=== PATIENT | male | born 1955 | race African-American/Black ===

== ENCOUNTER 2018-06-27 09:44 | Emergency (ER) | payer MEDICAID ==
[~2018-06-27] VITALS: Ht 190.5 cm; Wt 127.0 kg
[2018-06-27 11:22] VITALS: BP 147/93
== END 2018-06-27 11:25 | disposition home or self-care (01) ==
LOC: ER 09:44
DX: I10 Essential (primary) hypertension (principal); E11.9 Type 2 diabetes mellitus without complications; F12.90 Cannabis use, unspecified, uncomplicated; Z86.73 Personal history of transient ischemic attack (TIA), and cerebral infarction without residual deficits; Z76.0 Encounter for issue of repeat prescription

== ENCOUNTER 2018-07-30 08:42 | Emergency (ER) | payer MEDICAID ==
[~2018-07-30] VITALS: Ht 190.5 cm; Wt 128.8 kg
[2018-07-30 09:10] VITALS: BP 153/80
[2018-07-30 09:37] LABS: Basophils # (auto) 0 uL; Basophils % (auto) 0.5 % (0.0-2.0); Eosinophils # (auto) 0 uL; Eosinophils % (auto) 0.5 % (0.0-7.0); Hematocrit 51.1 % (41.0-53.0); Lymphocytes # (auto) 1.1 uL; Lymphocytes % (auto) 33.9 % (10.0-50.0); Mean Corpuscular Hemoglobin 33.3 pg (28.0-32.0); Mean Corpuscular Hgb Conc. 33.2 g/dL (32.0-36.0); Mean Corpuscular Volume 100.1 fL (80.0-100.0); Monocytes # (auto) 0.4 uL; Monocytes % (auto) 11.6 % (0.0-12.0); Neutrophils # (auto) 1.8 uL; Neutrophils % (auto) 53.5 % (37.0-80.0); Nucleated Red Blood Cells % 0.1 %; Platelet Count (auto) 149 10^3/uL (140-450); Red Blood Cells 5.11 10^6/uL (4.5-5.90); Red Cell Distribution Width 13.5 % (11.8-14.3); White Blood Cell 3.4 10^3/uL (4.4-10.8)
[2018-07-30 09:50] LABS: Partial Thromboplastin Time 28.8 sec (23.78-33.04); Prothrombin Time 10.7 sec (9.27-12.13)
[2018-07-30 09:54] LABS: Alanine Aminotransferase 37 U/L (16-61); Albumin 3.8 g/dL (3.4-5.0); Anion Gap 8 (5-15); Aspartate Aminotransferase 21 U/L (15-37); BUN/Creatinine Ratio 17.9; Blood Urea Nitrogen 20 mg/dL (7-18); Calcium 8.5 mg/dL (8.5-10.1); Carbon Dioxide 27 mmol/L (21-32); Chloride 104 mmol/L (98-107); GFR African American > 60 mL/min; GFR Non-African American > 60 mL/min; Glucose 105 mg/dL (74-106); Potassium 4.1 mmol/L (3.5-5.1); Sodium 139 mmol/L (136-145)
[2018-07-30 09:59] LABS: Alkaline Phosphatase 83 U/L (45-117); Bilirubin, Total 0.6 mg/dL (0.2-1.0); Total Protein 7.2 g/dL (6.4-8.2)
== END 2018-07-30 10:59 | disposition home or self-care (01) ==
LOC: ER 08:42
DX: M16.12 Unilateral primary osteoarthritis, left hip (principal); R53.1 Weakness; E11.9 Type 2 diabetes mellitus without complications; I10 Essential (primary) hypertension; R94.31 Abnormal electrocardiogram [ECG] [EKG]; G93.89 Other specified disorders of brain; Z86.73 Personal history of transient ischemic attack (TIA), and cerebral infarction without residual deficits
CPT/HCPCS: 36415; 70450; 71045; 73030; 73502; 80053; 82962; 83735; 83880; 84484; 85025; 85610; 85730; 93005

== ENCOUNTER 2019-05-29 07:08 | Inpatient (IN) | payer MEDICAID ==
[~2019-05-29] VITALS: Ht 190.5 cm; Wt 131.2 kg
[2019-05-29 09:38] LABS: Basophils # (auto) 0 uL; Basophils % (auto) 0.7 % (0.0-2.0); Eosinophils # (auto) 0 uL; Eosinophils % (auto) 0.6 % (0.0-7.0); Hemoglobin 15.9 g/dL (13.5-17.5); Lymphocytes % (auto) 37.3 % (10.0-50.0); Mean Corpuscular Hemoglobin 33.5 pg (28.0-32.0); Mean Corpuscular Hgb Conc. 33.8 g/dL (32.0-36.0); Mean Corpuscular Volume 99.2 fL (80.0-100.0); Monocytes # (auto) 0.3 uL; Monocytes % (auto) 10.1 % (0.0-12.0); Neutrophils # (auto) 1.4 uL; Neutrophils % (auto) 51.3 % (37.0-80.0); Nucleated Red Blood Cells % 0.2 %; Platelet Count (auto) 139 10^3/uL (140-450); Red Blood Cells 4.74 10^6/uL (4.5-5.90); Red Cell Distribution Width 13.7 % (11.8-14.3); White Blood Cell 2.6 10^3/uL (4.4-10.8)
[2019-05-29 09:50] LABS: Albumin 3.6 g/dL (3.4-5.0); Anion Gap 2 (5-15); Blood Urea Nitrogen 9 mg/dL (7-18); Calcium 8.7 mg/dL (8.5-10.1); Carbon Dioxide 30 mmol/L (21-32); Chloride 108 mmol/L (98-107); Glucose 109 mg/dL (74-106); Sodium 140 mmol/L (136-145)
[2019-05-29 09:55] LABS: Alanine Aminotransferase 35 U/L (16-61); Alkaline Phosphatase 82 U/L (45-117); Aspartate Aminotransferase 17 U/L (15-37); BUN/Creatinine Ratio 8.9; Bilirubin, Total 0.8 mg/dL (0.2-1.0); GFR African American 96 mL/min; GFR Non-African American 79 mL/min; Total Protein 6.6 g/dL (6.4-8.2)
[2019-05-29 10:30] LABS: Urine Bacteria NONE SEEN /hpf (None Seen); Urine Blood Negative /uL (Negative); Urine Mucus FEW (None Seen); Urine WBC 1 /hpf (0 - 3)
[2019-05-29] MEDS ORDERED: PIPERACILLIN-TAZOB 3.375GM 100 ML IV ONE (11:45)
[2019-05-29] MEDS ORDERED: SODIUM CHLORIDE 0.9% 1,000 ML IV ONE ×2 (12:58)
[2019-05-29] MEDS ORDERED: ONDANSETRON HCL 4 MG/2 ML VIAL IV PRN (13:15)
[2019-05-29] MEDS ORDERED: NITROGLYCERIN 0.4 MG SL TAB SL PRN (13:15)
[2019-05-29] MEDS ORDERED: MORPHINE SULF INJ 2 MG/ML SYRINGE 1ML IV PRN ×2 (13:15)
[2019-05-29] MEDS ORDERED: LEVOFLOXACIN 500MG 100 ML IV ONE (13:15)
[2019-05-29] MEDS ORDERED: ATROPINE SULF 1 MG/10ml SYR IV PRN (13:15)
[2019-05-29] MEDS: SODIUM CHLORIDE 0.9% 1,000 ML IV SCH ×2 (13:50→23:41)
[2019-05-29] MEDS ORDERED: ATROPINE SULF 0.5 MG/5ML SYR IV PRN (14:00)
[2019-05-29 14:08] LABS: INR 1.23 (0.9-1.15)
[2019-05-29] MEDS: metroNIDAZOLE 500MG/100ML 100 ML IV SCH ×2 (16:08→21:10)
[2019-05-29 18:23] LABS: Basophils # (auto) 0 uL; Basophils % (auto) 0.5 % (0.0-2.0); Eosinophils # (auto) 0 uL; Eosinophils % (auto) 1.2 % (0.0-7.0); Hematocrit 43.7 % (41.0-53.0); Hemoglobin 14.3 g/dL (13.5-17.5); Lymphocytes # (auto) 1.1 uL; Lymphocytes % (auto) 34.8 % (10.0-50.0); Mean Corpuscular Hemoglobin 33.1 pg (28.0-32.0); Mean Corpuscular Hgb Conc. 32.6 g/dL (32.0-36.0); Mean Corpuscular Volume 101.3 fL (80.0-100.0); Monocytes # (auto) 0.3 uL; Neutrophils # (auto) 1.6 uL; Neutrophils % (auto) 52.5 % (37.0-80.0); Nucleated Red Blood Cells % 0.4 %; Platelet Count (auto) 118 10^3/uL (140-450); Red Blood Cells 4.32 10^6/uL (4.5-5.90); Red Cell Distribution Width 13.7 % (11.8-14.3); White Blood Cell 3.1 10^3/uL (4.4-10.8)
--- NOTE | 2019-05-29 20:55 | NUR ---
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 Patient transferred to bed, connected to unit monitoring and weighed by bed scale. Patient oriented to Ольга licea RN, unit, room, bed, and unit policies regarding patient care and visiting hours. All questions and concerns addressed, patient verbalized understanding. NOTE: PATIENT IS AWAKE, ALERT AND ORIENTED X4. NO SOB, DISTRESS OR PAIN NOTED. ON ROOM AIR. PALPATED RADIAL PULSE 35, SINUS BRADYCARDIA WITH BIGEMINAL PVCS 70 ON MONITOR RH 20G INFUSING NS AT 100ML/H. NO OPEN WOUND. WILL CLOSELY MONITOR.
[2019-05-29 21:00] VITALS: BP 179/75
[2019-05-29] MEDS ORDERED: CLOP75TA28 PO (21:40)
[2019-05-29] MEDS ORDERED: HYDR-4296 PO (21:40)
[2019-05-29] MEDS ORDERED: BENA20TA14 PO (21:40)
[2019-05-29] MEDS ORDERED: ATO40T PO (21:40)
[2019-05-29] MEDS ORDERED: LEVOFLOXACIN 500MG 100 ML IV SCH (22:00)
[2019-05-29] MEDS: hydrALAZINE HCL 20 MG/ML VL IV PRN (22:23)
[2019-05-30] VITALS: BP 137/67
[2019-05-30 04:00] VITALS: BP 148/66
--- NOTE | 2019-05-30 04:30 | NUR ---
MORNING HYGIENE CARE PATIENT INDEPENDENTLY BATHED HIMSELF, WASHED HIS FACE AND BRUSHED HIS TEETH. NEW GOWN PLACED. PARTIAL LINEN CHANGED. PATIENT TOLERATED IT WELL.
[2019-05-30 04:53] LABS: Basophils # (auto) 0 uL; Basophils % (auto) 0.6 % (0.0-2.0); Eosinophils # (auto) 0 uL; Eosinophils % (auto) 1.2 % (0.0-7.0); Hematocrit 45.5 % (41.0-53.0); Hemoglobin 15.2 g/dL (13.5-17.5); Lymphocytes # (auto) 0.9 uL; Lymphocytes % (auto) 28.5 % (10.0-50.0); Mean Corpuscular Hemoglobin 33.3 pg (28.0-32.0); Mean Corpuscular Hgb Conc. 33.4 g/dL (32.0-36.0); Mean Corpuscular Volume 99.7 fL (80.0-100.0); Monocytes # (auto) 0.3 uL; Monocytes % (auto) 10.5 % (0.0-12.0); Neutrophils # (auto) 1.9 uL; Neutrophils % (auto) 59.2 % (37.0-80.0); Nucleated Red Blood Cells % 0.1 %; Platelet Count (auto) 125 10^3/uL (140-450); Red Blood Cells 4.57 10^6/uL (4.5-5.90); Red Cell Distribution Width 13.6 % (11.8-14.3); White Blood Cell 3.2 10^3/uL (4.4-10.8)
[2019-05-30 05:09] LABS: Calcium 8.5 mg/dL (8.5-10.1); Potassium 3.6 mmol/L (3.5-5.1)
[2019-05-30 05:12] LABS: BUN/Creatinine Ratio 9.5
[2019-05-30] MEDS: metroNIDAZOLE 500MG/100ML 100 ML IV SCH ×2 (05:45→14:35)
--- NOTE | 2019-05-30 07:28 | NUR ---
END OF SHIFT REPORT GIVEN AND CARE ENDORSED TO MARIA E BHAT.
--- NOTE | 2019-05-30 07:30 | NUR ---
RECEIVED PATIENT SITTING UP ON THE SIDE OF THE BED, A/O TIMES 4, WHEN NAME IS CALLED, O2 BY R/A, USES THE URINAL , DENIES PAIN NS INFUSING INTO THE RT HAND AT 100ML/HR BY THE IV PUMP
[2019-05-30 07:55] VITALS: BP 163/80
--- NOTE | 2019-05-30 08:29 | NUR ---
DR BAE GI IN TO SEE THE PATIENT AND DISCUSS THE POC
--- NOTE | 2019-05-30 09:30 | NUR ---
PATIENT GOT UP TO THE BEDSIDE AND ATE HIS BREAKFAST
--- NOTE | 2019-05-30 09:45 | NUR ---
DIDACTIC PROGRAM IN DIETETICS DIRECTOR IN TALKING TO THE PATIENT
--- NOTE | 2019-05-30 10:01 | NUR ---
DISCUSSED MEDICATIONS WITH THE PATIENT REGARDING THE DOSAGES,NAUSEA USAGE AND THE SIDE EFFECTS, VERBALIZED SHE UNDERSTOOD AND MEDS GIVEN ORDERED, ALSO GIVEN ZOFRAN FOR NAUSEA Addendum: 05/30/19 at 1008 by Tatiana Barker RN DISREGARD WRONG PATIENT
--- NOTE | 2019-05-30 10:10 | NUR ---
PATIENT UP WALKING TO THE BR NO HELP NEEDED
--- NOTE | 2019-05-30 10:43 | NUR ---
DISCUSSED MEDICATIONS WITH THE PATIENT REGARDING THE DOSAGE, USAGE AND THE SIDE EFFECTS, VERBALIZED THAT HE UNDERSTOOD AND MEDS GIVEN ORDERED
[2019-05-30] MEDS ORDERED: LEVOFLOXACIN 500MG 100 ML IV SCH (11:00)
--- NOTE | 2019-05-30 11:24 | NUR ---
IN TO VISIT WITH THE PATIENT
[2019-05-30] MEDS ORDERED: fentaNYL CITRATE 100 MCG/2 ML VL IV ONE (11:30)
[2019-05-30] MEDS ORDERED: MIDAZOLAM HCL 1MG/1ML-2 ML VIAL IV ONE (11:30)
[2019-05-30 11:55] VITALS: BP 178/88
--- NOTE | 2019-05-30 12:26 | NUR ---
MANAS LYING IN BED TALKING TO HIS NO COMPLAINTS
--- NOTE | 2019-05-30 12:54 | NUR ---
SITTING UP ON THE SIDE OF THE BED EATING HIS LUNCH NO HELP, AT THE BEDSIDE
[2019-05-30] MEDS: hydrALAZINE HCL 20 MG/ML VL IV PRN (13:53)
--- NOTE | 2019-05-30 13:55 | NUR ---
MEDICATED FOR BP OF 174/77 WITH HYDRALAZINE, LEFT AND WENT HOME
--- NOTE | 2019-05-30 14:35 | NUR ---
RECHECKED B/P 149/88 PATIETN UP TO THE BR
--- NOTE | 2019-05-30 14:49 | NUR ---
DR VELASQUEZ CALLED TO INQUIRE ABOUT THE PATIENT EXPRESS TO HIM THAT THE HR HAS NOT BEEN LESS THAN 40 AND IT WAS ONLY FOR A SECOND
--- NOTE | 2019-05-30 15:30 | NUR ---
GETTING UP GOING TO THE BR NO HELP NEEDED
[2019-05-30 16:00] VITALS: BP 149/93
--- NOTE | 2019-05-30 16:07 | NUR ---
DR TALBOTSH IN TO SEE THE PATIENT AND STATES HE IS GOING TO DISCHARGE HIM HOME AND HE NEEDS TO FOLLOW UP WITH DR BAE GI
--- NOTE | 2019-05-30 16:51 | NUR ---
SITTING UP IN BED WATCHING TV, WAITING FOR THE DISCHARGE ORDER TO BE WRITTEN
[2019-05-30] MEDS ORDERED: METR500T PO (17:38)
[2019-05-30] MEDS ORDERED: LEVO500T21 PO (17:38)
[2019-05-30] MEDS ORDERED: diphenhdrAMINE HCL 25 MG CAP PO ONE (17:45)
[2019-05-30 17:55] VITALS: BP 149/93
--- NOTE | 2019-05-30 18:00 | NUR ---
LYING IN BED WAITING FOR DINNER, TO COME, AND TO GO HOME
--- NOTE | 2019-05-30 18:30 | NUR ---
SITTING UP ON THE SIDE OF THE BED, A/O TIME 4, O2 BY R/A, DENIES PAIN, SALINE LOCK TO THE RT HAND FLUSHED PATENT AND INTACT, USES THE BR, NO SOB NOTED AND NO BLEEDING , HR HAS NOT DROPPED TO THE 30 TODAY, WILL CONTINUE TO MONITOR AND GIVE REPORT TO THE NEXT SHIFT
--- NOTE | 2019-05-30 18:42 | NUR ---
SPOKE WITH DR VELASQUEZ AND STATED THE PATIENT CAN GO HOME
--- NOTE | 2019-05-30 18:50 | NUR ---
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
--- NOTE | 2019-05-30 19:25 | NUR ---
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
== END 2019-05-30 19:20 | disposition home health service (06) | DRG 254 ==
LOC: ER 07:08 → TELE 07:09 → DOU IN ICU 21:03
PROVIDERS: ADMIT Internal Medicine; ATTEND Internal Medicine
DX: K92.1 Melena (principal); I69.351 Hemiplegia and hemiparesis following cerebral infarction affecting right dominant side; K62.89 Other specified diseases of anus and rectum; E66.9 Obesity, unspecified; E78.5 Hyperlipidemia, unspecified; I10 Essential (primary) hypertension; I49.3 Ventricular premature depolarization; E11.9 Type 2 diabetes mellitus without complications; K40.20 Bilateral inguinal hernia, without obstruction or gangrene, not specified as recurrent; I49.8 Other specified cardiac arrhythmias; Z82.3 Family history of stroke; Z68.36 Body mass index [BMI] 36.0-36.9, adult; Z79.84 Long term (current) use of oral hypoglycemic drugs
CPT/HCPCS: 36415; 74176; 80048; 80053; 81001; 83735; 84484; 85025; 85610; 93005; 93306; 96361; 96365; 96367; 96375; G0378; J1956; J2543; J3490

== ENCOUNTER 2019-07-11 06:46 | Emergency (ER) | payer MEDICAID ==
[~2019-07-11] VITALS: Ht 193 cm; Wt 122.0 kg
[~2019-07-11 06:46] MED LIST: ATO40T PO; BENA20TA14 PO; HYDR-4296 PO; LEVO500T21 PO; METR500T PO
[2019-07-11 08:10] LABS: Basophils # (auto) 0 uL; Basophils % (auto) 0.5 % (0.0-2.0); Eosinophils # (auto) 0 uL; Eosinophils % (auto) 0.2 % (0.0-7.0); Hematocrit 51.8 % (41.0-53.0); Hemoglobin 17.6 g/dL (13.5-17.5); Lymphocytes # (auto) 0.6 uL; Lymphocytes % (auto) 18.9 % (10.0-50.0); Mean Corpuscular Hemoglobin 33.4 pg (28.0-32.0); Mean Corpuscular Volume 98.4 fL (80.0-100.0); Monocytes # (auto) 0.3 uL; Monocytes % (auto) 8.3 % (0.0-12.0); Neutrophils # (auto) 2.5 uL; Neutrophils % (auto) 72.1 % (37.0-80.0); Nucleated Red Blood Cells % 0.1 %; Platelet Count (auto) 149 10^3/uL (140-450); Red Blood Cells 5.27 10^6/uL (4.5-5.90); Red Cell Distribution Width 13.1 % (11.8-14.3); White Blood Cell 3.4 10^3/uL (4.4-10.8)
[2019-07-11 08:27] LABS: Albumin 4.4 g/dL (3.4-5.0); Calcium 9.1 mg/dL (8.5-10.1)
[2019-07-11] MEDS ORDERED: LORazepam 0.5 MG TAB PO ONE (08:30)
[2019-07-11] MEDS ORDERED: ASPirin 81 mg TAB PO ONE (08:30)
[2019-07-11 08:32] LABS: BUN/Creatinine Ratio 7.8; Bilirubin, Total 0.9 mg/dL (0.2-1.0); Total Protein 7.7 g/dL (6.4-8.2)
[2019-07-11 09:52] VITALS: BP 144/89
== END 2019-07-11 10:46 | disposition home or self-care (01) ==
LOC: ER 06:46
DX: R07.89 Other chest pain (principal); F41.9 Anxiety disorder, unspecified; E11.9 Type 2 diabetes mellitus without complications; I10 Essential (primary) hypertension; Z86.73 Personal history of transient ischemic attack (TIA), and cerebral infarction without residual deficits; Z79.899 Other long term (current) drug therapy
CPT/HCPCS: 36415; 71046; 80053; 84484; 85025; 93005

== ENCOUNTER 2020-08-21 03:23 | Emergency (ER) | payer MEDICAID, OTHER ==
[~2020-08-21] VITALS: Ht 190.5 cm; Wt 121.6 kg
[~2020-08-21 03:23] MED LIST changes: -LEVO500T21 PO; +LEVO500T31 PO
[2020-08-21 03:45] VITALS: BP 150/70
[2020-08-21] MEDS ORDERED: KETOROLAC TROMETH 60MG/2ML VIAL IM ONE (04:45)
== END 2020-08-21 05:21 | disposition home or self-care (01) ==
LOC: ER 03:23
DX: M12.511 Traumatic arthropathy, right shoulder (principal); M12.551 Traumatic arthropathy, right hip; M54.42 Lumbago with sciatica, left side; M54.41 Lumbago with sciatica, right side; E11.9 Type 2 diabetes mellitus without complications; I10 Essential (primary) hypertension; Z86.73 Personal history of transient ischemic attack (TIA), and cerebral infarction without residual deficits; V43.62XA Car passenger injured in collision with other type car in traffic accident, initial encounter; Y93.89 Activity, other specified; Y92.488 Other paved roadways as the place of occurrence of the external cause; Y99.8 Other external cause status
CPT/HCPCS: 72100; 72170; 73030; 73610; 96372; 99284; J1885

== ENCOUNTER 2021-05-26 06:19 | Emergency (ER) | payer MEDICARE, MEDICAID ==
[~2021-05-26] VITALS: Ht 190.5 cm; Wt 113.4 kg
[2021-05-26 07:39] VITALS: BP 171/82
== END 2021-05-26 09:08 | disposition home or self-care (01) ==
LOC: ER 06:19
DX: G44.209 Tension-type headache, unspecified, not intractable (principal); E11.9 Type 2 diabetes mellitus without complications; I10 Essential (primary) hypertension; Z86.73 Personal history of transient ischemic attack (TIA), and cerebral infarction without residual deficits
CPT/HCPCS: 70450